=== PATIENT | female | born 1970 | race Two or more races ===

== ENCOUNTER 2018-12-20 01:07 | Emergency (ER) | payer MEDICAID, OTHER ==
[~2018-12-20] VITALS: Ht 160 cm; Wt 113.0 kg
[2018-12-20] MEDS ORDERED: IBUPROFEN 600MG TABLET PO ONE (10:00)
[2018-12-20 12:00] VITALS: BP 156/70
== END 2018-12-20 12:20 | disposition home or self-care (01) ==
LOC: ER 01:07
DX: L03.012 Cellulitis of left finger (principal); I10 Essential (primary) hypertension; F17.200 Nicotine dependence, unspecified, uncomplicated
CPT/HCPCS: 73140; 99283